=== PATIENT | female | born 1970 | race Caucasian/White ===

== ENCOUNTER 2017-05-20 09:17 | Emergency (ER) | payer BC ==
[2017-05-20] MEDS ORDERED: EPINEPHrine 0.3 MG/0.3 ML Pen Autoinjector IM ONE (09:18)
[2017-05-20] MEDS ORDERED: diphenhydrAMINE 50 MG/ML SDV IVPUSH ONE (09:26)
[2017-05-20] MEDS ORDERED: methylPREDNISolone Sodium Succinate 125 MG/2 ML SDV IVPUSH ONE (09:26)
--- NOTE | 2017-05-20 10:40 | EDM.PDOC ---
ED HPI GENERAL MEDICAL PROBLEM - General Chief Complaint: Allergic Reaction Stated Complaint: Tongue swelling allergic reaction Time Seen by Provider: 05/20/17 09:28 Source of Information: Reports: Patient History Limitations: Reports: No Limitations - History of Present Illness INITIAL COMMENTS - FREE TEXT/NARRATIVE: Patient here for allergic reaction/angioedema exacerbation. Has had intermittent problems with this for the past four years. Has Epi-Pens at home but did not use one today as she ran out. Tongue feels swollen, left eye mildly puffy. Denies shortness of breath. Pain-free. Has had numerous evaluations to try to identify triggers, including skin tests. So far no specific trigger or set of triggers have been found. She thinks she has a refill available. In past, when she received Solu-Medrol, symptoms usually urvashi for 3-4 months. Other Treatments CONSULTING SERVICES PROJECT MANAGER: none - Related Data Allergies Allergy/AdvReac Type Severity Reaction Status Date / Time ciprofloxacin Allergy Burning Verified 05/20/17 09:27 desipramine Allergy UNKNOWN Verified 05/20/17 09:27 Home Meds: Home Meds EPINEPHrine [Epipen] 0.3 mg IM ASDIRECTED PRN 02/02/14 [History] FLUoxetine HCl [Fluoxetine HCl] 80 mg PO DAILY 02/02/14 [History] Omeprazole 40 mg PO DAILY 02/02/14 [History] Cyanocobalamin (Vitamin B12) [Vitamin B12] 1,000 mg PO DAILY 11/11/14 [History] Polyethylene Glycol 3350 [MiraLAX] 17 gm PO DAILY PRN 11/11/14 [History] Cholecalciferol (Vitamin D3) [Vitamin D3] 4,000 unit PO DAILY 05/20/17 [History] EPINEPHrine [Epipen] 0.3 mg IM ONETIME PRN #1 pen 05/20/17 [Rx] busPIRone [Buspar] 15 mg PO BID 05/20/17 [History] Past Medical History HEENT History: Reports: Impaired Vision Other HEENT History: legally blind Gastrointestinal History: Reports: Cholelithiasis, GERD Genitourinary History: Reports: None Psychiatric History: Reports: Anxiety, Depression Endocrine/Metabolic History: Reports: Vitamin D Deficiency Hematologic History: Reports: Anemia, B12 Deficiency, Iron Deficiency - Past Surgical History HEENT Surgical History: Reports: Eye Surgery, Tonsillectomy Other HEENT Surgeries/Procedures: total of seven eye surgies GI Surgical History: Reports: Bariatric Procedure, Cholecystectomy Female Surgical History: Reports: Hysterectomy Social & Family History - Tobacco Use Smoking Status *Q: Current Every Day Smoker Years of Tobacco use: 20 Packs/Tins Daily: 0.5 Second Hand Smoke Exposure: Yes - Caffeine Use Caffeine Use: Reports: Soda - Alcohol Use Days Per Week of Alcohol Use: 1 Number of Drinks Per Day: 2 Total Drinks Per Week: 2 - Recreational Drug Use Recreational Drug Use: No Drug Use in Last 12 Months: No - Living Situation & Occupation Living situation: Reports: , with Family Occupation: Employed ED ROS ALLERGIC REACTION - Review of Systems Review Of Systems: See Below Constitutional: Reports: No Symptoms HEENT: Reports: Throat Pain (throat feels irritated), Other (tongue fees swollen , left eye feels puffy). Denies: Ear Discharge, Ear Pain, Eye Discharge, Eye Pain, Rhinitis, Sinus Problem, Throat Swelling, Vertigo, Vision Change Respiratory: Reports: No Symptoms. Denies: Shortness of Breath, Wheezing, Pleuritic Chest Pain, Cough, Hemoptysis Cardiovascular: Reports: No Symptoms. Denies: Chest Pain, Lightheadedness, Palpitations GI/Abdominal: Reports: No Symptoms : Reports: No Symptoms Musculoskeletal: Reports: No Symptoms Skin: Reports: No Symptoms Neurological: Reports: No Symptoms. Denies: Dizziness, Headache, Numbness, Tingling Psychiatric: Reports: No Symptoms Hematologic/Lymphatic: Reports: No Symptoms Immunologic: Reports: Other (unknown) ED EXAM GENERAL NO PERIP PULSE - Physical Exam Exam: See Below Exam Limited By: No Limitations General Appearance: Alert Eye Exam: Left Eye: Periorbital Changes (very mildly puffy upper/lower lid compared to right), Bilateral Eye: EOMI, PERRL Ears: Normal External Exam Nose: Normal Inspection. No: Nasal Swelling, Nasal Drainage Throat/Mouth: Normal Lips, Normal Teeth, Normal Gums, Normal Voice, No Airway Compromise, Other (mildly swollen tongue, equal bilaterally) Head: Atraumatic. No: Facial Tenderness, Sinus Tenderness Neck: Normal Inspection, Supple, Non-Tender, Full Range of Motion. No: Lymphadenopathy (L), Lymphadenopathy (R) Respiratory/Chest: No Respiratory Distress, Lungs Clear, Normal Breath Sounds, No Accessory Muscle Use Cardiovascular: Normal Peripheral Pulses, Regular Rate, Rhythm, No Edema, No Murmur GI/Abdominal: Normal Bowel Sounds, Soft, Non-Tender, No Distention Back Exam: Normal Inspection Extremities: Normal Inspection, Normal Range of Motion, Non-Tender, No Pedal Edema, Normal Capillary Refill Neurological: Alert, Oriented, Normal Cognition, Normal Gait, No Motor/Sensory Deficits Psychiatric: Normal Affect, Normal Mood Skin Exam: Warm, Dry, Intact, Normal Color, No Rash Course - Vital Signs Last Recorded V/S: Last Vital Signs Temp 37.1 C 05/20/17 09:33 Pulse 67 05/20/17 09:48 Resp 18 05/20/17 09:48 BP 107/52 L 05/20/17 09:48 Pulse Ox 99 05/20/17 09:48 - Orders/Labs/Meds Meds: Medications Discontinued Medications Generic Name Dose Route Start Last Admin Trade Name Freq PRN Reason Stop Dose Admin Diphenhydramine HCl 50 mg 05/20/17 09:26 05/20/17 09:30 Benadryl IVPUSH 05/20/17 09:27 50 mg ONETIME ONE Administration Epinephrine HCl 0.3 mg 05/20/17 09:18 05/20/17 09:23 Epipen IM 05/20/17 09:19 0.3 mg ONETIME ONE Administration Methylprednisolone Sodium Succinate 125 mg 05/20/17 09:26 05/20/17 09:30 Solu-Medrol IVPUSH 05/20/17 09:27 125 mg ONETIME ONE Administration - Re-Assessments/Exams Free Text/Narrative Re-Assessment/Exam: 05/20/17 11:07 Patient received IV SoluMedrol, Benadryl, as well as Epi-Pen Quick improvement. Observed for an hour. Continued to improve. Vital signs stable. Discharge planned. Continued steroids planned for 5 days as well as Benadryl. EpiPen refilled. Extensive precautions given to patient prior to discharge. Departure - Departure Time of Disposition: 10:38 Disposition: Home, Self-Care 01 Condition: Good Clinical Impression: Angioedema - Discharge Information Prescriptions: EPINEPHrine [Epipen] 0.3 mg IM ONETIME PRN #1 pen PRN Reason: anaphylaxis Instructions: Diphenhydramine injection, Methylprednisolone Solution for Injection, Epinephrine Injection, Allergies Referrals: Jessica Gentile PA-C [Primary Care Provider] - Additional Instructions: Continue daily Prednisone starting tomorrow and continue for full 5 days. Continue Benadryl 1-2 tablets every 6 hours for the next 48 hours then use as needed if symptoms continue. Follow up in ER if symptoms rebound, especially if you have any shortness of breath. Strongly suggest elimination diet and food/symptom/activity diary as discussed.
[2017-05-20 11:12] VITALS: BP 100/52
== END 2017-05-20 11:00 | disposition home or self-care (01) ==
LOC: LL.ED 09:17 → SUPCPDRO 09:17 → LL.ED 11:00
DX: T78.3XXA Angioneurotic edema, initial encounter (principal); K21.9 Gastro-esophageal reflux disease without esophagitis; F41.9 Anxiety disorder, unspecified; F17.210 Nicotine dependence, cigarettes, uncomplicated; Z90.49 Acquired absence of other specified parts of digestive tract; Z79.899 Other long term (current) drug therapy; Z88.1 Allergy status to other antibiotic agents; Z88.8 Allergy status to other drugs, medicaments and biological substances; Z90.710 Acquired absence of both cervix and uterus
CPT/HCPCS: 96372; 96374; 96375; 99284; J1200; J2930; A9270-GY

== ENCOUNTER 2017-06-22 15:19 | Emergency (ER) | payer BC ==
[~2017-06-22 15:19] MED LIST: EPINEPHrine 0.3 MG/0.3 ML Pen Autoinjector IM ONE; EPINEPHrine 1 MG/ML SDV SUBCUT ONE; diphenhydrAMINE 50 MG/ML SDV IVPUSH ONE
[2017-06-22] MEDS ORDERED: Sodium Chloride 0.9% 10 ML Syringe FLUSH PRN (15:33)
--- NOTE | 2017-06-22 15:40 | EDM.PDOC ---
ED HPI GENERAL MEDICAL PROBLEM - General Chief Complaint: General Stated Complaint: oral swelling Time Seen by Provider: 06/22/17 15:47 Source of Information: Reports: Patient, Family History Limitations: Reports: No Limitations - History of Present Illness Onset: Today, Sudden Duration: Minutes:, Improving Location: Reports: Face, Neck Severity: Moderate Improves with: Reports: Medication (EpiPen) Worsens with: Reports: Breathing Context: Reports: Other (Unknown cause of anaphylactic reaction) Associated Symptoms: Reports: Other (Swelling of face tongue wheezing) - Related Data Allergies Allergy/AdvReac Type Severity Reaction Status Date / Time ciprofloxacin Allergy Burning Verified 05/20/17 09:27 desipramine Allergy UNKNOWN Verified 05/20/17 09:27 Home Meds: Home Meds EPINEPHrine [Epipen] 0.3 mg IM ASDIRECTED PRN 02/02/14 [History] FLUoxetine HCl [Fluoxetine HCl] 80 mg PO DAILY 02/02/14 [History] Omeprazole 40 mg PO DAILY 02/02/14 [History] Cyanocobalamin (Vitamin B12) [Vitamin B12] 1,000 mg PO DAILY 11/11/14 [History] Polyethylene Glycol 3350 [MiraLAX] 17 gm PO DAILY PRN 11/11/14 [History] Cholecalciferol (Vitamin D3) [Vitamin D3] 4,000 unit PO DAILY 05/20/17 [History] EPINEPHrine [Epipen] 0.3 mg IM ONETIME PRN #1 pen 05/20/17 [Rx] busPIRone [Buspar] 15 mg PO BID 05/20/17 [History] Cetirizine [ZyrTEC] 10 mg PO DAILY 06/22/17 [History] Prednisone [IJD: Prednisone] 20 mg PO 6XDAY #6 tab 06/22/17 [Rx] diphenhydrAMINE [Benadryl] 50 mg PO Q6H PRN 06/22/17 [History] Past Medical History HEENT History: Reports: Impaired Vision Other HEENT History: legally blind Gastrointestinal History: Reports: Cholelithiasis, GERD Genitourinary History: Reports: None Psychiatric History: Reports: Anxiety, Depression Endocrine/Metabolic History: Reports: Vitamin D Deficiency Hematologic History: Reports: Anemia, B12 Deficiency, Iron Deficiency - Past Surgical History HEENT Surgical History: Reports: Eye Surgery, Tonsillectomy Other HEENT Surgeries/Procedures: total of seven eye surgies GI Surgical History: Reports: Bariatric Procedure, Cholecystectomy Female Surgical History: Reports: Hysterectomy Social & Family History - Tobacco Use Smoking Status *Q: Current Every Day Smoker Years of Tobacco use: 20 Packs/Tins Daily: 0.5 Second Hand Smoke Exposure: Yes - Caffeine Use Caffeine Use: Reports: Soda - Alcohol Use Days Per Week of Alcohol Use: 1 Number of Drinks Per Day: 2 Total Drinks Per Week: 2 - Recreational Drug Use Recreational Drug Use: No Drug Use in Last 12 Months: No - Living Situation & Occupation Living situation: Reports: , with Family Occupation: Employed ED ROS GENERAL - Review of Systems Review Of Systems: See Below Constitutional: Reports: Other (Swelling) HEENT: Reports: Other (Patient has congenital cataracts) Respiratory: Reports: Shortness of Breath, Wheezing Cardiovascular: Reports: No Symptoms Endocrine: Reports: No Symptoms GI/Abdominal: Reports: No Symptoms Musculoskeletal: Reports: No Symptoms Skin: Reports: No Symptoms Neurological: Reports: No Symptoms Psychiatric: Reports: No Symptoms Free Text/Narrative/Comment: Patient has history of allergic reactions with anaphylaxis ED EXAM, GENERAL - Physical Exam Exam: See Below Exam Limited By: No Limitations General Appearance: Alert, WD/WN, No Apparent Distress Eye Exam: Bilateral Eye: PERRL, Vision Changes (20/200 bilaterally) Ears: Normal External Exam, Normal Canal, Hearing Grossly Normal, Normal TMs Nose: Normal Inspection, Normal Mucosa, No Blood Throat/Mouth: Inflammation Neck: Supple, Tender Lateral, Other (Swelling) Cardiovascular: Normal Peripheral Pulses, Regular Rate, Rhythm, No Edema, No Gallop, No JVD, No Murmur, No Rub GI/Abdominal: Normal Bowel Sounds, Soft, Non-Tender, No Organomegaly, No Distention, No Abnormal Bruit, No Mass (Female) Exam: Normal External Exam, Normal Speculum Exam, Normal Bimanual Exam Rectal (Female) Exam: Deferred Extremities: Normal Inspection, Normal Range of Motion, Non-Tender, Normal Capillary Refill, No Pedal Edema Neurological: Alert, Oriented, CN II-XII Intact, Normal Cognition, Normal Gait, Normal Reflexes, No Motor/Sensory Deficits Psychiatric: Normal Affect, Normal Mood Skin Exam: Warm, Dry, Intact, Normal Color, No Rash Course - Orders/Labs/Meds Orders: Active Orders 24 hr Category Date Time Status Sodium Chloride 0.9% [Saline Flush] Med 06/22/17 15:33 Active 10 ml FLUSH ASDIRECTED PRN Saline Lock Insert [OM.PC] Routine Oth 06/22/17 15:33 Ordered Medication Orders Sodium Chloride (Saline Flush) 10 ml FLUSH ASDIRECTED PRN PRN Reason: Keep Vein Open Meds: Medications Generic Name Dose Route Start Last Admin Trade Name Freq PRN Reason Stop Dose Admin Sodium Chloride 10 ml 06/22/17 15:33 Saline Flush FLUSH ASDIRECTED PRN Keep Vein Open Discontinued Medications Generic Name Dose Route Start Last Admin Trade Name Freq PRN Reason Stop Dose Admin Diphenhydramine HCl 50 mg 06/22/17 14:22 Benadryl IVPUSH 06/22/17 14:23 ONETIME ONE Epinephrine HCl 0.3 mg 06/22/17 15:19 Adrenalin 1:1000 SUBCUT 06/22/17 15:20 ONETIME ONE Epinephrine HCl 0.3 mg 06/22/17 15:19 06/22/17 15:34 Epipen IM 06/22/17 15:20 1 applic ONETIME ONE Administration Departure - Departure Time of Disposition: 15:47 Disposition: Home, Self-Care 01 Clinical Impression: Allergic reaction Qualifiers: Encounter type: initial encounter Qualified Code(s): T78.40XA - Allergy, unspecified, initial encounter - Discharge Information Referrals: Jessica Gentile PA-C [Primary Care Provider] - Care Plan Goals: Patient treated with EpiPen given 50 of Benadryl by mouth we'll start prednisone 20 mg daily for 5 day for 6 days - My Orders Last 24 Hours: My Active Orders 06/22/17 15:33 Sodium Chloride 0.9% [Saline Flush] 10 ml FLUSH ASDIRECTED PRN Saline Lock Insert [OM.PC] Routine - Assessment/Plan Last 24 Hours: My Active Orders 06/22/17 15:33 Sodium Chloride 0.9% [Saline Flush] 10 ml FLUSH ASDIRECTED PRN Saline Lock Insert [OM.PC] Routine
[2017-06-22 17:24] VITALS: BP 104/56
== END 2017-06-22 16:45 | disposition home or self-care (01) ==
LOC: LL.ED 15:19
DX: T78.40XA Allergy, unspecified, initial encounter (principal); F17.210 Nicotine dependence, cigarettes, uncomplicated; K21.9 Gastro-esophageal reflux disease without esophagitis; F41.9 Anxiety disorder, unspecified; F32.9 Major depressive disorder, single episode, unspecified; Z86.79 Personal history of other diseases of the circulatory system; Z90.49 Acquired absence of other specified parts of digestive tract; Z90.89 Acquired absence of other organs; Z88.1 Allergy status to other antibiotic agents; Z88.5 Allergy status to narcotic agent; Z79.899 Other long term (current) drug therapy; Z90.710 Acquired absence of both cervix and uterus
CPT/HCPCS: 96372; 96374; 99285; A9270; J1200

== ENCOUNTER 2017-08-26 19:40 | Emergency (ER) | payer BC ==
[2017-08-26] MEDS ORDERED: methylPREDNISolone Sod Succ 125 MG in Sodium Chloride 0.9% 100 ML IV ONE (19:55)
[2017-08-26] MEDS ORDERED: Sodium Chloride 0.9% 10 ML Syringe FLUSH PRN (19:55)
--- NOTE | 2017-08-26 19:57 | EDM.PDOC ---
ED HPI GENERAL MEDICAL PROBLEM - General Chief Complaint: General Stated Complaint: allergic reaction Time Seen by Provider: 08/26/17 19:50 Source of Information: Reports: Patient History Limitations: Reports: No Limitations - History of Present Illness INITIAL COMMENTS - FREE TEXT/NARRATIVE: Patient is a 47-year-old who states that about 20 minutes ago she noticed her lips swelling and felt she was having an allergic reaction she has had multiple allergic reactions recently at this time this looks more like angioedema so I will have pharmacy go through her medications to see if any of her medications produce angioedema patient denies shortness of breath Onset: Sudden Duration: Minutes: Location: Reports: Face (Swelling of lips) Severity: Moderate Improves with: Reports: Medication, Other (Medication) Associated Symptoms: Reports: No Other Symptoms - Related Data Allergies Allergy/AdvReac Type Severity Reaction Status Date / Time ciprofloxacin Allergy Burning Verified 05/20/17 09:27 desipramine Allergy UNKNOWN Verified 05/20/17 09:27 Home Meds: Home Meds EPINEPHrine [Epipen] 0.3 mg IM ASDIRECTED PRN 02/02/14 [History] FLUoxetine HCl [Fluoxetine HCl] 80 mg PO DAILY 02/02/14 [History] Omeprazole 40 mg PO DAILY 02/02/14 [History] Cyanocobalamin (Vitamin B12) [Vitamin B12] 1,000 mg PO DAILY 11/11/14 [History] Polyethylene Glycol 3350 [MiraLAX] 17 gm PO DAILY PRN 11/11/14 [History] Cholecalciferol (Vitamin D3) [Vitamin D3] 4,000 unit PO DAILY 05/20/17 [History] busPIRone [Buspar] 15 mg PO BID 05/20/17 [History] diphenhydrAMINE [Benadryl] 50 mg PO Q6H PRN 06/22/17 [History] Loratadine 10 mg PO DAILY PRN 08/26/17 [History] Ranitidine HCl [Zantac] 150 mg PO BID PRN 08/26/17 [History] Past Medical History HEENT History: Reports: Impaired Vision Other HEENT History: legally blind Gastrointestinal History: Reports: Cholelithiasis, GERD Genitourinary History: Reports: None Psychiatric History: Reports: Anxiety, Depression Endocrine/Metabolic History: Reports: Vitamin D Deficiency Hematologic History: Reports: Anemia, B12 Deficiency, Iron Deficiency - Past Surgical History HEENT Surgical History: Reports: Eye Surgery, Tonsillectomy Other HEENT Surgeries/Procedures: total of seven eye surgies GI Surgical History: Reports: Bariatric Procedure, Cholecystectomy Female Surgical History: Reports: Hysterectomy Social & Family History - Tobacco Use Smoking Status *Q: Current Every Day Smoker Years of Tobacco use: 20 Packs/Tins Daily: 0.5 Second Hand Smoke Exposure: Yes - Caffeine Use Caffeine Use: Reports: Soda - Alcohol Use Days Per Week of Alcohol Use: 1 Number of Drinks Per Day: 2 Total Drinks Per Week: 2 - Recreational Drug Use Recreational Drug Use: No Drug Use in Last 12 Months: No - Living Situation & Occupation Living situation: Reports: , with Family Occupation: Employed ED ROS GENERAL - Review of Systems Review Of Systems: See Below Constitutional: Reports: No Symptoms HEENT: Reports: Contact Lenses, Rhinitis Respiratory: Reports: No Symptoms Cardiovascular: Reports: No Symptoms Endocrine: Reports: No Symptoms GI/Abdominal: Reports: Diarrhea (Patient has diarrhea prior to an outbreak as a general comment) : Reports: No Symptoms Musculoskeletal: Reports: No Symptoms Skin: Reports: No Symptoms Neurological: Reports: No Symptoms Psychiatric: Reports: No Symptoms Hematologic/Lymphatic: Reports: No Symptoms Immunologic: Reports: Anaphylaxis ED EXAM, GENERAL - Physical Exam Exam: See Below Exam Limited By: No Limitations General Appearance: Alert, WD/WN, No Apparent Distress Ears: Normal External Exam, Normal Canal, Hearing Grossly Normal, Normal TMs Nose: Clear Rhinorrhea Throat/Mouth: Other (Swelling of lips) Head: Atraumatic, Normocephalic Neck: Normal Inspection, Supple, Non-Tender, Full Range of Motion Respiratory/Chest: No Respiratory Distress, Lungs Clear, Normal Breath Sounds, No Accessory Muscle Use, Chest Non-Tender Cardiovascular: Normal Peripheral Pulses, Regular Rate, Rhythm, No Edema, No Gallop, No JVD, No Murmur, No Rub GI/Abdominal: Normal Bowel Sounds, Soft, Non-Tender, No Organomegaly, No Distention, No Abnormal Bruit, No Mass (Female) Exam: Deferred Rectal (Female) Exam: Deferred Back Exam: Normal Inspection, Full Range of Motion, NT Extremities: Normal Inspection, Normal Range of Motion, Non-Tender, Normal Capillary Refill, No Pedal Edema Neurological: Alert, Oriented, CN II-XII Intact, Normal Cognition, Normal Gait, Normal Reflexes, No Motor/Sensory Deficits Psychiatric: Normal Affect, Normal Mood Skin Exam: Warm, Dry, Intact, Normal Color, No Rash Lymphatic: No Adenopathy Departure - Departure Time of Disposition: 20:37 Disposition: Home, Self-Care 01 Condition: Fair Clinical Impression: Allergic reaction Qualifiers: Encounter type: subsequent encounter Qualified Code(s): T78.40XD - Allergy, unspecified, subsequent encounter - Discharge Information Referrals: Jessica Gentile PA-C [Primary Care Provider] - Care Plan Goals: She will be given Solu-Medrol 150 IV and placed on prednisone 20 twice a day for 5 days Prolonged medications revealed that all her medications can produce angioedema spoke with the pharmacist and state that we should consider stopping one at a time to see if this resolves and of course we have to taper her Prozac and BuSpar
[2017-08-26] MEDS ORDERED: methylPREDNISolone Sodium Succinate 125 MG/2 ML SDV IVPUSH ONE (20:00)
[2017-08-26 20:40] VITALS: BP 112/61
== END 2017-08-26 20:55 | disposition home or self-care (01) ==
LOC: LL.ED 19:40
DX: T78.40XD Allergy, unspecified, subsequent encounter (principal); K21.9 Gastro-esophageal reflux disease without esophagitis; F17.210 Nicotine dependence, cigarettes, uncomplicated; Z88.1 Allergy status to other antibiotic agents; Z88.8 Allergy status to other drugs, medicaments and biological substances; Z79.899 Other long term (current) drug therapy
CPT/HCPCS: 96374; 99283; J2930; J7050

== ENCOUNTER 2018-02-16 09:32 | Emergency (ER) | payer BC ==
[2018-02-16] MEDS ORDERED: diphenhydrAMINE 50 MG/ML SDV IVPUSH ONE (09:43)
[2018-02-16] MEDS ORDERED: Sodium Chloride 0.9% 10 ML Syringe FLUSH PRN (09:43)
[2018-02-16] MEDS ORDERED: methylPREDNISolone Sodium Succinate 125 MG/2 ML SDV IM ONE (09:43)
[2018-02-16] MEDS ORDERED: methylPREDNISolone Sodium Succinate 125 MG/2 ML SDV IVPUSH ONE (09:47)
[2018-02-16 10:03] VITALS: BP 120/54
[2018-02-16] MEDS ORDERED: EPINEPHrine 0.3 MG/0.3 ML Pen Autoinjector IM ONE (10:28)
[2018-02-16] MEDS ORDERED: Famotidine 20 MG/2 ML SDV IVPUSH ONE (10:28)
[2018-02-16] MEDS ORDERED: Sodium Chloride 0.9% 500 ML IV ONE (10:29)
[2018-02-16] MEDS ORDERED: Loratadine 10 MG Tab PO ONE (10:29)
[2018-02-16] MEDS ORDERED: Sodium Chloride 0.9% 500 ML IV SCH (10:45)
--- NOTE | 2018-02-16 11:44 | EDM.PDOC ---
ED HPI GENERAL MEDICAL PROBLEM - General Chief Complaint: Allergic Reaction Stated Complaint: Swelling of tongue Time Seen by Provider: 02/16/18 10:05 Source of Information: Reports: Patient History Limitations: Reports: No Limitations - History of Present Illness INITIAL COMMENTS - FREE TEXT/NARRATIVE: Patient comes to ER with episode of angioedema of tongue. She is well known to us and has had to be treated in ER for similar episodes in past. Has had intermittent episodes over the last 5 years. No specific trigger has ever been identified. Is now seeing an hydraulic boom operator. No SOB. Has swelling of tongue. No other acute changes. No changes in symptoms when compared to episodes experienced in past. Has always required steroids/solu -medrol for successful treatment. Had Epi-pen at home but could not locate it this morning when symptoms developed. Oral/Mouth Pain Score (Numeric/FACES): 2 - Related Data Allergies Allergy/AdvReac Type Severity Reaction Status Date / Time ciprofloxacin Allergy Burning Verified 02/16/18 10:16 desipramine Allergy UNKNOWN Verified 02/16/18 10:16 Home Meds: Home Meds EPINEPHrine [Epipen] 0.3 mg IM ASDIRECTED PRN 02/02/14 [History] FLUoxetine HCl [Fluoxetine HCl] 80 mg PO DAILY 02/02/14 [History] Omeprazole 40 mg PO DAILY 02/02/14 [History] Cyanocobalamin (Vitamin B12) [Vitamin B12] 1,000 mg PO DAILY 11/11/14 [History] Polyethylene Glycol 3350 [MiraLAX] 17 gm PO DAILY PRN 11/11/14 [History] Cholecalciferol (Vitamin D3) [Vitamin D3] 4,000 unit PO DAILY 05/20/17 [History] busPIRone [Buspar] 15 mg PO BID 05/20/17 [History] diphenhydrAMINE [Benadryl] 50 mg PO Q6H PRN 06/22/17 [History] Loratadine 10 mg PO DAILY PRN 08/26/17 [History] Doxepin [SINEquan] 10 mg PO BEDTIME 02/16/18 [History] predniSONE 40 mg PO WITHBREAKFAST 4 Days tab 02/16/18 [Rx] Past Medical History HEENT History: Reports: Impaired Vision Other HEENT History: legally blind Gastrointestinal History: Reports: Cholelithiasis, GERD Genitourinary History: Reports: None Psychiatric History: Reports: Anxiety, Depression Endocrine/Metabolic History: Reports: Vitamin D Deficiency Hematologic History: Reports: Anemia, B12 Deficiency, Iron Deficiency - Past Surgical History HEENT Surgical History: Reports: Eye Surgery, Tonsillectomy Other HEENT Surgeries/Procedures: total of seven eye surgies GI Surgical History: Reports: Bariatric Procedure, Cholecystectomy Female Surgical History: Reports: Hysterectomy Social & Family History - Tobacco Use Smoking Status *Q: Current Every Day Smoker Years of Tobacco use: 20 Packs/Tins Daily: 0.5 - Caffeine Use Caffeine Use: Reports: Soda - Recreational Drug Use Recreational Drug Use: No - Living Situation & Occupation Living situation: Reports: , with Family Occupation: Employed ED ROS ALLERGIC REACTION - Review of Systems Review Of Systems: See Below Constitutional: Reports: No Symptoms HEENT: Reports: Other (swelling of tongue). Denies: Ear Pain, Eye Discharge, Nose Pain, Rhinitis, Sinus Problem, Throat Pain, Vertigo, Vision Change Respiratory: Reports: No Symptoms. Denies: Shortness of Breath Cardiovascular: Reports: No Symptoms. Denies: Chest Pain, Lightheadedness GI/Abdominal: Reports: No Symptoms : Reports: No Symptoms Musculoskeletal: Reports: No Symptoms Skin: Reports: No Symptoms. Denies: Erythema, Change in Color, Urticaria Neurological: Reports: No Symptoms Psychiatric: Reports: No Symptoms ED EXAM GENERAL NO PERIP PULSE - Physical Exam Exam: See Below Exam Limited By: No Limitations General Appearance: Alert, WD/WN, No Apparent Distress, Other (muffled speech due to tongue swelling) Eye Exam: Bilateral Eye: EOMI, Other (legally blind.) Ears: Normal External Exam, Normal Canal Nose: Normal Inspection Throat/Mouth: Normal Lips, No Airway Compromise, Other (symmetric swelling of tongue) Head: Atraumatic, Normocephalic Neck: Supple, Non-Tender, Full Range of Motion. No: Lymphadenopathy (L), Lymphadenopathy (R) Respiratory/Chest: No Respiratory Distress, Lungs Clear, Normal Breath Sounds, No Accessory Muscle Use Cardiovascular: Normal Peripheral Pulses, Regular Rate, Rhythm GI/Abdominal: Normal Bowel Sounds, Soft, Non-Tender, No Distention (Female) Exam: Deferred Rectal (Female) Exam: Deferred Back Exam: No: CVA Tenderness (L), CVA Tenderness (R), Muscle Spasm, Paraspinal Tenderness, Vertebral Tenderness Extremities: Normal Inspection, Normal Capillary Refill Neurological: Alert, Oriented, Normal Cognition, No Motor/Sensory Deficits Psychiatric: Normal Affect, Normal Mood Skin Exam: Warm, Dry, Intact, Normal Color. No: Erythema, Increased Warmth Course - Vital Signs Last Recorded V/S: Last Vital Signs Temp 36.5 C 02/16/18 10:00 Pulse 77 02/16/18 10:00 Resp 18 02/16/18 10:00 BP 120/54 L 02/16/18 10:00 Pulse Ox 97 02/16/18 10:00 - Orders/Labs/Meds Orders: Active Orders 24 hr Category Date Time Status Sodium Chloride 0.9% [Normal Saline] 500 ml Med 02/16/18 10:45 Active IV .BOLUS Sodium Chloride 0.9% [Saline Flush] Med 02/16/18 09:43 Active 10 ml FLUSH ASDIRECTED PRN Saline Lock Insert [OM.PC] Routine Oth 02/16/18 09:43 Ordered Medication Orders Sodium Chloride (Normal Saline) 500 mls @ 999 mls/hr IV .BOLUS GODWIN Last Admin: 02/16/18 10:44 Dose: 999 mls/hr Sodium Chloride (Saline Flush) 10 ml FLUSH ASDIRECTED PRN PRN Reason: Keep Vein Open Last Admin: 02/16/18 09:56 Dose: 10 ml Meds: Medications Generic Name Dose Route Start Last Admin Trade Name Freq PRN Reason Stop Dose Admin Sodium Chloride 500 mls @ 999 mls/hr 02/16/18 10:45 02/16/18 10:44 Normal Saline IV 999 mls/hr .BOLUS GODWIN Administration Sodium Chloride 10 ml 02/16/18 09:43 02/16/18 09:56 Saline Flush FLUSH 10 ml ASDIRECTED PRN Administration Keep Vein Open Discontinued Medications Generic Name Dose Route Start Last Admin Trade Name Freq PRN Reason Stop Dose Admin Diphenhydramine HCl 50 mg 02/16/18 09:43 02/16/18 09:55 Benadryl IVPUSH 02/16/18 09:44 50 mg ONETIME ONE Administration Epinephrine HCl 0.3 mg 02/16/18 10:28 02/16/18 10:34 Epipen IM 02/16/18 10:29 0.3 mg ONETIME ONE Administration Famotidine 20 mg 02/16/18 10:28 02/16/18 10:34 Pepcid IVPUSH 02/16/18 10:29 20 mg ONETIME ONE Administration Loratadine 10 mg 02/16/18 10:29 02/16/18 10:39 Claritin PO 02/16/18 10:30 10 mg ONETIME ONE Administration Methylprednisolone Sodium Succinate 125 mg 02/16/18 09:47 02/16/18 09:55 Solu-Medrol IVPUSH 02/16/18 09:48 125 mg ONETIME ONE Administration - Re-Assessments/Exams Free Text/Narrative Re-Assessment/Exam: 02/16/18 11:45 Patient initially received Solu-Medrol and Benadryl IV. Observed. Vital signs remained stable/airway clear. Epi-pen as well as IV Pepcid, PO Claritin ordered. Improvement noted. Continued to observe for additional hour. Discharged home. Precautions reviewed prior to discharge. To return to ER if symptoms flare again. Will be placed on Prednisone PO for the next 4 days. To follow up with primary provider/ hydraulic boom operator. Departure - Departure Time of Disposition: 12:00 Disposition: Home, Self-Care 01 Condition: Good Clinical Impression: Angioedema - Discharge Information Prescriptions: predniSONE 40 mg PO WITHBREAKFAST 4 Days tab Referrals: Jessica Gentile PA-C [Primary Care Provider] - Additional Instructions: Follow up in ER if symptoms of swelling return. Take Prednisone daily for four days starting tomorrow. Take Benadryl 50mg every 6 hours for the next two days. Follow up with primary provider and hydraulic boom operator for continued workup of intermittent angioedema symptoms. - My Orders Last 24 Hours: My Active Orders 02/16/18 09:43 Sodium Chloride 0.9% [Saline Flush] 10 ml FLUSH ASDIRECTED PRN Saline Lock Insert [OM.PC] Routine 02/16/18 10:45 Sodium Chloride 0.9% [Normal Saline] 500 ml IV .BOLUS - Assessment/Plan Last 24 Hours: My Active Orders 02/16/18 09:43 Sodium Chloride 0.9% [Saline Flush] 10 ml FLUSH ASDIRECTED PRN Saline Lock Insert [OM.PC] Routine 02/16/18 10:45 Sodium Chloride 0.9% [Normal Saline] 500 ml IV .BOLUS
== END 2018-02-16 12:10 | disposition home or self-care (01) ==
LOC: LL.ED 09:32
DX: T78.3XXA Angioneurotic edema, initial encounter (principal); F17.210 Nicotine dependence, cigarettes, uncomplicated; Z88.1 Allergy status to other antibiotic agents; Z79.899 Other long term (current) drug therapy
CPT/HCPCS: 96372; 96374; 96375; 99285; A9270-GY; J1200; J2930; J7040; J7050; S0028

== ENCOUNTER 2018-09-28 04:43 | Emergency (ER) | payer BC ==
[2018-09-28] MEDS ORDERED: Famotidine 20 MG/2 ML SDV IVPUSH ONE (04:44)
--- NOTE | 2018-09-28 04:44 | EDM.PDOC ---
ED HPI GENERAL MEDICAL PROBLEM - General Chief Complaint: General Stated Complaint: unresponsive Time Seen by Provider: 09/28/18 04:44 Source of Information: Reports: Patient, EMS, Family (), Old Records. Denies: EMS Notes Reviewed (Records not available at time of dictation) History Limitations: Reports: Altered Mental Status - History of Present Illness INITIAL COMMENTS - FREE TEXT/NARRATIVE: The patient was brought to the emergency room via ambulance with front end developer accompaniment secondary to apparent overdose attempt with patient found out in the cold outside of her house in her pajamas and coat. Paramedics did place a nasal cannula to improve respirations and also gave 0.4 mg of Narcan prior to arrival with no improvement. Normal saline IV fluids were also started. Per history from the patient's they have been having frequent fights recently with patient apparently taking more than 20 of his 0.25 mg Xanax tablets this evening. She also apparently drank at least 8 beers with no other known pills for overdose. She is unable to give a proper history secondary to her unresponsiveness with majority of history taken from her . No apparent chest pain/pressure, heart flutter, dizziness, orthostasis, orthopnea, diaphoresis, paresthesias, recent decreased exercise tolerance, or any other anginal-type symptoms. No recent history of abdominal pain, heartburn, nausea, diarrhea, melena, gross hematochezia, or any food intolerance, including fatty foods, etc.. Also, no apparent history of any recent fever, cough, wheezing, dyspnea, etc.. No history of recent headaches, visual changes, diplopia, change in mental status, or other change in neurological status. No apparent pain or discomfort. Accu-Chek taken by front end developer prior to transfer was 78 mg percent. Onset: Today, Unknown/Unsure Duration: Constant Location: Reports: Other (No pain) Improves with: Reports: None Worsens with: Reports: None Context: Reports: Other (As above). Denies: Sick Contact, Trauma Associated Symptoms: Reports: No Other Symptoms Treatments SHOE IRONER: Reports: IV/IO, Other Medication(s) (As above), Oxygen - Related Data Allergies Allergy/AdvReac Type Severity Reaction Status Date / Time ciprofloxacin Allergy Burning Verified 02/16/18 10:16 desipramine Allergy UNKNOWN Verified 02/16/18 10:16 Home Meds: Home Meds EPINEPHrine [Epipen] 0.3 mg IM ASDIRECTED PRN 02/02/14 [History] FLUoxetine HCl [Fluoxetine HCl] 80 mg PO DAILY 02/02/14 [History] Omeprazole 40 mg PO DAILY 02/02/14 [History] Cyanocobalamin (Vitamin B12) [Vitamin B12] 1,000 mg PO DAILY 11/11/14 [History] Polyethylene Glycol 3350 [MiraLAX] 17 gm PO DAILY PRN 11/11/14 [History] Cholecalciferol (Vitamin D3) [Vitamin D3] 4,000 unit PO DAILY 05/20/17 [History] busPIRone [Buspar] 15 mg PO BID 05/20/17 [History] diphenhydrAMINE [Benadryl] 50 mg PO Q6H PRN 06/22/17 [History] Loratadine 10 mg PO DAILY PRN 08/26/17 [History] Doxepin [SINEquan] 10 mg PO BEDTIME 02/16/18 [History] predniSONE 40 mg PO WITHBREAKFAST 4 Days tab 02/16/18 [Rx] Past Medical History HEENT History: Reports: Cataract, Glaucoma, Impaired Vision. Denies: Allergic Rhinitis, Hard of Hearing, Macular Degeneration, Retinal Detachment Other HEENT History: Patient is legally blind with history of bilateral congenital cataracts with previous surgery as below. Cardiovascular History: Reports: None. Denies: Afib, Aneurysm, Arrhythmia, Blood Clots/VTE/DVT, CAD, Heart Failure, Heart Murmur, High Cholesterol, Hypertension, UT, Syncope Respiratory History: Reports: Intubation, Previous. Denies: Asthma, Bronchitis , Recurrent, COPD, Intubation, Difficult, PE, Pneumothorax, Sleep Apnea Gastrointestinal History: Reports: Cholelithiasis, Chronic Constipation, Chronic Diarrhea, GERD, Other (See Below). Denies: Celiac Disease, Gastritis, GI Bleed, Hepatitis, Inflammatory Bowel Disease, Irritable Bowel Syndrome, Jaundice, Pancreatitis, PUD Other Gastrointestinal History: Alternating diarrhea and constipation secondary to gastric bypass. Genitourinary History: Reports: UTI, Recurrent, Other (See Below). Denies: Acute Renal Failure, Chronic Renal Insuffiency, Renal Calculus, STD, Urinary Incontinence Other Genitourinary History: Recurrent UTIs in childhood but not currently SWITCHBOARD MANAGER History: Reports: Dysfunctional Uterine Bleeding, Endometriosis, Fibroids , . Denies: Spontaneous : 3 Para: 3 LMP (Approximate): Other (See Below) Other SWITCHBOARD MANAGER History: Menopause secondary to endometriosis and dysfunctional uterine bleeding with previous history of irregular menses. One delivery by with 2 C-sections all full-term deliveries and secondary to breech position the other secondary to failure to progress. Otherwise, Full term without complications during pregnancies or deliveries. Musculoskeletal History: Reports: Fracture, Other (See Below). Denies: Arthritis, Gout, Neck Pain, Chronic, Osteoarthritis, RA, SLE Other Musculoskeletal History: Right fifth metacarpal fracture in the Neurological History: Denies: Cerebral Aneurysms, Concussion, CVA, Headaches, Chronic, Head Trauma, Migraines, MS, Parkinson's, Seizure, TIA, Vertigo Psychiatric History: Reports: Anxiety, Depression, Suicidal Ideation. Denies: Abuse, Victim of, ADD, ADHD, Addiction, Psych Hospitalization(s), PTSD, Suicide Attempt Endocrine/Metabolic History: Reports: Vitamin D Deficiency. Denies: Diabetes, Gestational, Diabetes, Type I, Diabetes, Type II, Diabetes Mellitus, Type 3c, Hypothyroidism, IDDM Hematologic History: Reports: Anemia, B12 Deficiency, Iron Deficiency, Other ( See Below). Denies: Blood Transfusion(s) Other Hematologic History: History of chronic anemia secondary to her dysmenorrhea/hypermenorrhea. Immunologic History: Reports: None. Denies: AIDS, HIV, SLE Oncologic (Cancer) History: Denies: Basal Cell Carcinoma, Breast, Cervix, Hodgkin's Lymphoma, Leukemia, Lymphoma, Malignant Melanoma, Non-Hodgkin's Lymphoma, Squamous Cell Carcinoma, Uterine Dermatologic History: Reports: Angiodema, Other (See Below). 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 - Infectious Disease History Infectious Disease History: Reports: Other (See Below). Denies: C-Difficile, Meningitis, Mononucleosis, MRSA, VRE Other Infectious Disease History: Childhood illnesses unknown - Past Surgical History Head Surgeries/Procedures: Reports: None HEENT Surgical History: Reports: Adenoidectomy, Cataract Surgery, Eye Surgery, Oral Surgery, Tonsillectomy. Denies: Myringotomy w Tube(s), Naso-Sinus Surgery , Radiocarotid Ectomy Other HEENT Surgeries/Procedures: Total of seven eye surgies in childhood secondary to congenital cataracts, etc.. Tonsillectomy and adenoidectomy as a child. [place] teeth extraction. Cardiovascular Surgical History: Reports: None. Denies: Varicose Respiratory Surgical History: Reports: None. Denies: Thoracentesis GI Surgical History: Reports: Bariatric Procedure, Cholecystectomy, Colonoscopy , EGD, Other (See Below). Denies: Appendectomy, Hernia, Abdominal, Hernia, Inguinal, Hernia Repair/Other, Polypectomy Other GI Surgeries/Procedures: EGD and colonoscopy on 11/12/14. Gastric bypass surgery in 1997. Subsequent laparoscopic cholecystectomy in about 1999. Female Surgical History: Reports: Section, Hysterectomy, Other (See Below). Denies: D&C, Salpingo-Oophorectomy, Tubal Ligation Other Female Surgeries/Procedures: Complete hysterectomy secondary to endometriosis at about age 39 Endocrine Surgical History: Reports: None. Denies: Thyroid Biopsy Neurological Surgical History: Reports: None. Denies: C-Spine, Discectomy, Laminectomy, Lumbar Spine, Sacral Spine, Thoracic Spine, Vertebroplasty Musculoskeletal Surgical History: Reports: Carpal Tunnel, ORIF, Other (See Below ). Denies: Arthroscopic Procedure, Ganglion Cyst, Joint Replacement, Shoulder Surgery Other Musculoskeletal Surgeries/Procedures:: ORIF of previous metacarpal fracture as above with subsequent hardware removal. Bilateral carpal tunnel release at about age 34. Oncologic Surgical History: Reports: None. Denies: Biopsy of Breast Dermatological Surgical History: Reports: None - Past Imaging History Past Imaging History: Reports: None Social & Family History - Family History Oncologic: Reports: Lung, Other (See Below) Other Oncologic Family History: Sister with fatal lung cancer at age 65 with history of tobacco use. Mother with primary hepatic cancer at age 86. - Tobacco Use Smoking Status *Q: Current Every Day Smoker Tobacco Use Within Last Twelve Months: Cigarettes Years of Tobacco use: 19 Packs/Tins Daily: 0.5 Used Tobacco, but Quit: No Smoking Cessation Information Provided To Patient: No (Patient transferred) Second Hand Smoke Exposure: Yes Source of Second Hand Smoke Exposure: smokes Second Hand Smoke Education Provided: Patient Refused - Caffeine Use Caffeine Use: Reports: Soda - Alcohol Use Alcohol Use History: Yes Days Per Week of Alcohol Use: 1 Number of Drinks Per Day: 7 Number of Drinks Per Day Comment: Usually beer. No previous DWIs, problems with alcohol abuse, etc. Total Drinks Per Week: 7 Alcohol Use in Last Twelve Months: Yes Alcohol Use Frequency: Binges - Recreational Drug Use Recreational Drug Use: Yes Recreational Drug Type: Reports: Marijuana/Hashish (Monthly marijuana use since age 39). 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 No: Dysphagia, Perioral Cyanosis Head: Atraumatic, Normocephalic. No: Facial Swelling, Facial Tenderness Neck: Normal Inspection, Supple, Non-Tender, Full Range of Motion. No: Carotid Bruit, Lymphadenopathy (L), Lymphadenopathy (R), Thyromegaly Respiratory/Chest: No Respiratory Distress, Lungs Clear, Normal Breath Sounds, No Accessory Muscle Use, Chest Non-Tender. No: Pleural Rub, Retractions Cardiovascular: Normal Peripheral Pulses, Regular Rate, Rhythm, No Edema, No Gallop, No JVD, No Murmur, No Rub. No: Gallop/S3, Gallop/S4, Friction Rub Peripheral Pulses: 2+: Radial (L), Radial (R), Dorsalis Pedis (L), Dorsalis Pedis (R) GI/Abdominal: Normal Bowel Sounds, Soft, Non-Tender, No Organomegaly, No Distention, No Abnormal Bruit, No Mass, Pelvis Stable. No: Guarding (Female) Exam: Deferred Rectal (Female) Exam: Deferred Back Exam: Normal Inspection, Full Range of Motion. No: CVA Tenderness (L), CVA Tenderness (R), Muscle Spasm Extremities: Normal Inspection, Normal Range of Motion, Non-Tender, No Pedal Edema, Normal Capillary Refill. No: Barry's Sign Neurological: Normal Reflexes (Negative Babinski's), Unresponsive (Lethargic), Other (Moderate to severe intoxication and alcohol odor) Psychiatric: Other (Unable to assesslethargic) Skin Exam: Warm, Dry, Intact, Cool, Tattoo(s). No: Diaphoretic, Wound/Incision Lymphatic: No Adenopathy EKG INTERPRETATION EKG Date: 09/28/18 Time: 05:44 Rhythm: NSR Rate (Beats/Min): 79 [place]: Normal (Neutral cardiac axis) P-Wave: Present QRS: Normal (0.08 seconds) ST-T: Normal QT: Prolonged (Mild at 434/497 ms) WY/PQ Interval: 0.12 seconds representing a short [place] interval with no delta waves noted Comparison: NA - No Prior EKG EKG Interpretation Comments: 1. No acute ischemic changes 2. Short [place] interval 3. Prolonged QT Course - Vital Signs Last Recorded V/S: Last Vital Signs Temp 36.4 C 09/28/18 06:00 Pulse 67 09/28/18 06:00 Resp 16 09/28/18 06:00 BP 108/77 09/28/18 06:00 Pulse Ox 99 09/28/18 06:00 Vital Signs - 24 hr 09/28/18 09/28/18 04:45 05:15 Temperature [ 35.9 C Temporal] Pulse, 64 96 Peripheral [ Pulse Oximetry] Respiratory 16 18 Rate Blood Pressure 107/78 157/83 H [Left Upper Arm ] O2 Sat by Pulse 99 99 Oximetry - Orders/Labs/Meds Orders: Active Orders 24 hr Category Date Time Status Cardiac Monitoring [RC] STAT Care 09/28/18 04:45 Active EKG Documentation Completion [RC] ASDIRECTED Care 09/28/18 04:45 Active Oxygen Therapy, ED [RC] PRN Care 09/28/18 04:45 Active Peripheral IV Care [RC] . DIRECTED Care 09/28/18 04:45 Active Pulse Oximetry [RC] CONTINUOUS Care 09/28/18 04:45 Active Up With Assistance [RC] ASDIRECTED Care 09/28/18 04:45 Active Vital Signs [RC] PFP Care 09/28/18 04:45 Active Nothing per Oral Now Diet [DIET] Diet 09/28/18 Breakfast Active Chest 1V Frontal [CR] Stat Exams 09/28/18 04:45 Taken CULTURE URINE [RM] Routine Lab 09/28/18 05:11 Ordered URINALYSIS W/MICROSCOPIC [UA W/MICROSCOPIC] [URIN] Lab 09/28/18 05:10 Ordered Routine Dextrose 5%-0.9% NaCl with KCl [D5 NS with 20 mEq KCl] Med 09/28/18 06:00 Active 1,000 ml IV ASDIRECTED Sodium Chloride 0.9% [Saline Flush] Med 09/28/18 04:44 Active 10 ml FLUSH ASDIRECTED PRN Obtain Past Medical Record [OM.PC] Stat Oth 09/28/18 04:45 Active Peripheral IV Insertion Adult [OM.PC] Stat Oth 09/28/18 04:45 Ordered Resuscitation Status Stat Resus Stat 09/28/18 04:44 Ordered Medication Orders Potassium Chloride/Dextrose/Sod Cl (D5 Ns With 20 Meq Kcl) 1,000 mls @ 100 mls/ hr IV ASDIRECTED GODWIN Last Admin: 09/28/18 06:02 Dose: 100 mls/hr Sodium Chloride (Saline Flush) 10 ml FLUSH ASDIRECTED PRN PRN Reason: Keep Vein Open Last Admin: 09/28/18 05:43 Dose: 10 ml Admin: 09/28/18 05:07 Dose: 10 ml Labs: Laboratory Tests 09/28/18 09/28/18 09/28/18 Range/Units 04:49 04:56 04:56 WBC 9.6 (4.0-10.2) K/uL RBC 4.18 (3.77-5.09) M/uL Hgb 12.8 (11.7-15.5) g/dL Hct 37.6 (34.0-46.0) % MCV 90.0 (84.0-98.0) fL MCH 30.6 (28.2-33.3) pg MCHC 34.0 (31.7-36.0) g/dL RDW 13.9 (11.2-14.1) % Plt Count 177 (150-350) K/uL Neut % (Auto) 58.9 (45.0-80.0) % Lymph % (Auto) 26.6 (10.0-50.0) % [place] % (Auto) 10.7 (2.0-14.0) % Eos % (Auto) 3.5 (0.0-5.0) % Baso % (Auto) 0.3 (0.0-2.0) % Neut # (Auto) 5.63 (1.40-7.00) K/uL Lymph # (Auto) 2.54 (0.50-3.50) K/uL [place] # (Auto) 1.02 H (0.00-1.00) K/uL Eos # (Auto) 0.33 (0.00-0.50) K/uL Baso # (Auto) 0.03 (0.00-0.20) K/uL PT 9.9 (9.5-12.0) SEC INR 0.9 APTT 23.4 (21.0-31.3) SEC Sodium (136-145) mmol/L Potassium (3.5-5.1) mmol/L Chloride (98-107) mmol/L Carbon Dioxide (21.0-32.0) mmol/L BUN (7-18) mg/dL Creatinine (0.51-1.17) mg/dL Est Cr Clr Drug Dosing Estimated GFR (MDRD) mL/min Glucose (74-106) mg/dL Lactic Acid (0.4-2.0) mmol/L Uric Acid (2.6-7.2) mg/dL Calcium (8.5-10.1) mg/dL Magnesium (1.8-2.4) mg/dL Total Bilirubin (0.2-1.0) mg/dL AST (15-37) U/L ALT (12-78) U/L Alkaline Phosphatase (46-116) IU/L Total Protein (6.4-8.2) g/dL Albumin (3.4-5.0) g/dL TSH, Ultra Sensitive (0.358-3.740) mIU/mL Urine Opiates Screen Cancelled Urine Methadone Screen Cancelled U Acetaminophen Screen Cancelled Ur Barbiturates Screen Cancelled Ur Tricyclics Screen Cancelled Ur Phencyclidine Scrn Cancelled Ur Amphetamine Screen Cancelled U Methamphetamines Scrn Cancelled U Benzodiazepines Scrn Cancelled U Cocaine Metab Screen Cancelled U Marijuana (THC) Screen Cancelled Ethyl Alcohol (0.000-0.080) g/dL 09/28/18 09/28/18 Range/Units 04:56 04:56 WBC (4.0-10.2) K/uL RBC (3.77-5.09) M/uL Hgb (11.7-15.5) g/dL Hct (34.0-46.0) % MCV (84.0-98.0) fL MCH (28.2-33.3) pg MCHC (31.7-36.0) g/dL RDW (11.2-14.1) % Plt Count (150-350) K/uL Neut % (Auto) (45.0-80.0) % Lymph % (Auto) (10.0-50.0) % [place] % (Auto) (2.0-14.0) % Eos % (Auto) (0.0-5.0) % Baso % (Auto) (0.0-2.0) % Neut # (Auto) (1.40-7.00) K/uL Lymph # (Auto) (0.50-3.50) K/uL [place] # (Auto) (0.00-1.00) K/uL Eos # (Auto) (0.00-0.50) K/uL Baso # (Auto) (0.00-0.20) K/uL PT (9.5-12.0) SEC INR APTT (21.0-31.3) SEC Sodium 142 (136-145) mmol/L Potassium 3.2 L (3.5-5.1) mmol/L Chloride 107 (98-107) mmol/L Carbon Dioxide 23.9 (21.0-32.0) mmol/L BUN 15 (7-18) mg/dL Creatinine 0.74 (0.51-1.17) mg/dL Est Cr Clr Drug Dosing TNP Estimated GFR (MDRD) > 60 mL/min Glucose 65 L (74-106) mg/dL Lactic Acid 2.0 (0.4-2.0) mmol/L Uric Acid 3.2 (2.6-7.2) mg/dL Calcium 7.4 L (8.5-10.1) mg/dL Magnesium 1.8 (1.8-2.4) mg/dL Total Bilirubin 0.1 L (0.2-1.0) mg/dL AST 25 (15-37) U/L ALT 40 (12-78) U/L Alkaline Phosphatase 63 (46-116) IU/L Total Protein 6.2 L (6.4-8.2) g/dL Albumin 3.1 L (3.4-5.0) g/dL TSH, Ultra Sensitive 1.576 (0.358-3.740) mIU/mL Urine Opiates Screen Urine Methadone Screen U Acetaminophen Screen Ur Barbiturates Screen Ur Tricyclics Screen Ur Phencyclidine Scrn Ur Amphetamine Screen U Methamphetamines Scrn U Benzodiazepines Scrn U Cocaine Metab Screen U Marijuana (THC) Screen Ethyl Alcohol 0.182 H (0.000-0.080) g/dL Urine specimen could not be collected. Meds: Medications Generic Name Dose Route Start Last Admin Trade Name Freq PRN Reason Stop Dose Admin Potassium Chloride/Dextrose/Sod Cl 1,000 mls @ 100 mls/hr 09/28/18 06:00 09/04 06:02 D5 Ns With 20 Meq Kcl IV 100 mls/hr ASDIRECTED GODWIN Administration Sodium Chloride 10 ml 09/28/18 04:44 09/28/18 05:43 Saline Flush FLUSH 10 ml ASDIRECTED PRN Administration Keep Vein Open Discontinued Medications Generic Name Dose Route Start Last Admin Trade Name Freq PRN Reason Stop Dose Admin Charcoal/Sorbitol Confirm 09/28/18 04:46 09/28/18 05:06 Insta-Iris Sorbitol Administered 09/28/18 04:47 240 ml Dose Administration 50 gm .ROUTE .STK-MED ONE Famotidine 40 mg 09/28/18 04:44 09/28/18 05:06 Pepcid IVPUSH 09/28/18 04:45 40 mg ONETIME ONE Administration Flumazenil 0.2 mg 09/28/18 04:48 09/28/18 05:06 Romazicon IVPUSH 09/28/18 04:49 0.2 mg ONETIME ONE Administration Flumazenil 0.2 mg 09/28/18 05:28 09/28/18 05:43 Romazicon IVPUSH 09/28/18 05:29 0.2 mg ONETIME ONE Administration Ondansetron HCl 4 mg 09/28/18 05:37 09/28/18 05:45 Zofran IVPUSH 09/28/18 05:38 4 mg ONETIME ONE Administration - Radiology Interpretation Free Text/Narrative:: monitoring tech shows normal sinus rhythm in the 70s to 80s with no ectopy or arrhythmia Chest x-ray, portable, shows no evidence of cardiomegaly, pneumothorax, or significant pulmonary infiltrates with some borderline right middle lobe atelectasis. Departure - Departure Time of Disposition: 07:05 Disposition: DC/Tfer to Acute Hospital 02 Condition: Fair Clinical Impression: Mixed anxiety depressive disorder, Peptic reflux disease, Tobacco abuse counseling, Hypokalemia, Hypoalbuminemia Overdose Qualifiers: Encounter type: initial encounter Injury intent: intentional self-harm Qualified Code(s): T50.902A - Poisoning by unspecified drugs, medicaments and biological substances, intentional self-harm, initial encounter - Discharge Information *PRESCRIPTION DRUG MONITORING PROGRAM REVIEWED*: Not Applicable *COPY OF PRESCRIPTION DRUG MONITORING REPORT IN PATIENT PAVAN: Not Applicable Forms: ED Department Discharge, Interfacility Transfer EMTALA - Problem List & Annotations (1) Overdose SNOMED Code(s): 22120808 Code(s): T50.901A - POISONING BY UNSP DRUG/MEDS/BIOL SUBST, ACCIDENTAL, INIT Status: Acute Priority: High Onset Date: 09/28/18 Annotation/Comment:: Gastric lavage with liters of room temperature tapwater conducted immediately him a however no pills could be obtained. Note status post gastric bypass. Charcoal/orbital placed through the gavage kit after the above lavage was completed. No complications with this procedure. Note no response to Narcan given by the paramedics with overall good response with IV Romazicon given in the emergency room after patient's arrival. Initial telephone consultation with [facility] at 05:55 hours with subsequent telephone consultation at 06:[address] Lopez, who does accept the patient for direct admission, with no further treatment recommendations given. Ambulance transfer with front end developer accompaniment. Psychiatry consultation advisable. Qualifiers: Encounter type: initial encounter Injury intent: intentional self-harm Qualified Code(s): T50.902A - Poisoning by unspecified drugs, medicaments and biological substances, intentional self-harm, initial encounter (2) Mixed anxiety depressive disorder SNOMED Code(s): 217953160 Code(s): F41.8 - OTHER SPECIFIED ANXIETY DISORDERS Status: Acute Priority : High Annotation/Comment:: Overdose attempt as above. Symptoms have been under moderately poor control recently by her 's history with symptoms actually worse after initiation of recent psychotherapy. Known history of distant recurrent suicidal ideation in the past but no inpatient treatment. No previous history of substance abuse including alcohol, etc., however patient does binge drink once per week and does use marijuana on a regular basis as above. Note current marital problems including argument earlier this evening. (3) Peptic reflux disease SNOMED Code(s): 027333587 Code(s): K21.9 - GASTRO-ESOPHAGEAL REFLUX DISEASE WITHOUT ESOPHAGITIS Status: Chronic Priority: Medium Annotation/Comment:: Stable by history. High-dose IV Pepcid given as GI prophylaxis. (4) Tobacco abuse counseling SNOMED Code(s): 090774174, 576696104, 685948213 Code(s): Z71.6 - TOBACCO ABUSE COUNSELING Status: Chronic Priority: Medium Annotation/Comment:: Patient and her have not been interested in stopping smoking in the past despite multiple previous counseling and tobacco cessation information. (5) Hypoalbuminemia SNOMED Code(s): 771098544 Code(s): E88.09 - [facility] DISORDERS OF PLASMA-PROTEIN METABOLISM, NEC Status: Acute Priority: Medium Onset Date: 09/28/18 Annotation/Comment:: Observe for now. Note history of gastric bypass. (6) Hypokalemia SNOMED Code(s): 40430498 Code(s): E87.6 - HYPOKALEMIA Status: Acute Priority: Medium Onset Date : 09/28/18 Annotation/Comment:: IV fluids with potassium supplementation as above. History of chronic intermittent diarrhea, including today in the emergency room. - Problem List Review Problem List Initiated/Reviewed/Updated: Yes - My Orders Last 24 Hours: My Active Orders 09/28/18 04:44 Sodium Chloride 0.9% [Saline Flush] 10 ml FLUSH ASDIRECTED PRN Resuscitation Status Stat 09/28/18 04:45 Cardiac Monitoring [RC] STAT EKG Documentation Completion [RC] ASDIRECTED Oxygen Therapy, ED [RC] PRN Peripheral IV Care [RC] . DIRECTED Pulse Oximetry [RC] CONTINUOUS Up With Assistance [RC] ASDIRECTED Vital Signs [RC] PFP Chest 1V Frontal [CR] Stat Obtain Past Medical Record [OM.PC] Stat Peripheral IV Insertion Adult [OM.PC] Stat 09/28/18 05:10 URINALYSIS W/MICROSCOPIC [UA W/MICROSCOPIC] [URIN] Routine 09/28/18 05:11 CULTURE URINE [RM] Routine 09/28/18 06:00 Dextrose 5%-0.9% NaCl with KCl [D5 NS with 20 mEq KCl] 1,000 ml IV ASDIRECTED 09/28/18 Breakfast Nothing per Oral Now Diet [DIET] - Assessment/Plan Last 24 Hours: My Active Orders 09/28/18 04:44 Sodium Chloride 0.9% [Saline Flush] 10 ml FLUSH ASDIRECTED PRN Resuscitation Status Stat 09/28/18 04:45 Cardiac Monitoring [RC] STAT EKG Documentation Completion [RC] ASDIRECTED Oxygen Therapy, ED [RC] PRN Peripheral IV Care [RC] . DIRECTED Pulse Oximetry [RC] CONTINUOUS Up With Assistance [RC] ASDIRECTED Vital Signs [RC] PFP Chest 1V Frontal [CR] Stat Obtain Past Medical Record [OM.PC] Stat Peripheral IV Insertion Adult [OM.PC] Stat 09/28/18 05:10 URINALYSIS W/MICROSCOPIC [UA W/MICROSCOPIC] [URIN] Routine 09/28/18 05:11 CULTURE URINE [RM] Routine 09/28/18 06:00 Dextrose 5%-0.9% NaCl with KCl [D5 NS with 20 mEq KCl] 1,000 ml IV ASDIRECTED 09/28/18 Breakfast Nothing per Oral Now Diet [DIET] Assessment:: As above Plan: As above. Extensive precautions were given to the patient and her , who are in agreement with the treatment plan. Ambulance transfer with front end developer accompaniment as above.
[2018-09-28] MEDS ORDERED: Activated Charcoal/Sorbitol Susp 50 GM/240 ML Bottle ONE (04:46)
[2018-09-28] MEDS ORDERED: Flumazenil 0.1 MG/ML 5 ML MDV IVPUSH ONE ×2 (04:48→05:28)
[2018-09-28] MEDS: Sodium Chloride 0.9% 10 ML Syringe FLUSH PRN ×2 (05:07→05:43)
[2018-09-28 05:27] LABS: CHLORIDE,CL 107 mmol/L (98-107); SODIUM,NA 142 mmol/L (136-145)
[2018-09-28] MEDS ORDERED: Ondansetron 4 MG/2 ML SDV IVPUSH ONE (05:37)
[2018-09-28] MEDS ORDERED: Dextrose 5%-0.9% NaCl with KCl 1,000 ML IV SCH (06:00)
[2018-09-28 07:39] VITALS: BP 108/77
== END 2018-09-28 07:05 ==
LOC: LL.ED 04:43
DX: T42.4X2A Poisoning by benzodiazepines, intentional self-harm, initial encounter (principal); F41.8 Other specified anxiety disorders; K21.9 Gastro-esophageal reflux disease without esophagitis; E87.6 Hypokalemia; E88.09 Other disorders of plasma-protein metabolism, not elsewhere classified; Z71.6 Tobacco abuse counseling
CPT/HCPCS: 36415; 71045; 80053; 83605; 83735; 84443; 84550; 85025; 85610; 85730; 93005; 96365; 96375; 96376; 99285; G0480; J2405; J3480; J3490

== ENCOUNTER 2019-05-19 12:39 | Emergency (ER) | payer BC ==
[2019-05-19] MEDS ORDERED: Famotidine 20 MG/2 ML SDV IVPUSH ONE (12:41)
[2019-05-19] MEDS ORDERED: diphenhydrAMINE 50 MG/ML SDV IVPUSH ONE (12:41)
--- NOTE | 2019-05-19 12:41 | EDM.PDOC ---
ED HPI GENERAL MEDICAL PROBLEM - General Chief Complaint: Allergic Reaction Stated Complaint: allergic reaction Time Seen by Provider: 05/19/19 12:40 Source of Information: Reports: Patient, Family (), Old Records ([facility] chart/EMR) History Limitations: Reports: No Limitations - History of Present Illness INITIAL COMMENTS - FREE TEXT/NARRATIVE: Patient was brought to the emergency room via private automobile by her for evaluation and treatment of another episode of recurrent idiopathic angioedema of unknown etiology. No recent change in allergen exposure. Note that the patient woke up with increasing facial swelling, angioedema, and mild dysphagia at about 10 AM this morning. The patient also denies any recent fever , wheezing, dyspnea, etc. although she has had some mild nasal drainage and yellowish productive cough during the last few days. The patient denies any chest pain/pressure, heart flutter, dizziness, orthostasis, orthopnea, diaphoresis, paresthesias, recent decreased exercise tolerance, or any other anginal-type symptoms. No recent history of abdominal pain, heartburn, nausea, diarrhea, melena, gross hematochezia, or any food intolerance, including fatty foods, etc.. She denies any pain or discomfort. The patient has an EpiPen at home, however this medication is . No other medical therapy prior to arrival. Onset: Today, Gradual Onset Date: 05/19/19 Onset Time: 10:00 Duration: Constant, Getting Worse Location: Reports: Face Quality: Reports: Same as Previous Episode Severity: Moderate Improves with: Reports: None Worsens with: Reports: None Context: Reports: Other (As above). Denies: Sick Contact, Trauma Associated Symptoms: Reports: Cough, cough w sputum, Rash (Facial urticaria). Denies: Confusion, Chest Pain, Diaphoresis, Fever/Chills, Headaches, Loss of Appetite, Malaise, Nausea/Vomiting, Shortness of Breath, Syncope, Weakness Treatments CAP MAKER: Reports: Other (see below) (None) - Related Data Allergies Allergy/AdvReac Type Severity Reaction Status Date / Time ciprofloxacin Allergy Burning Verified 05/19/19 13:48 desipramine Allergy UNKNOWN Verified 05/19/19 13:48 Home Meds: Home Meds EPINEPHrine [Epipen] 0.3 mg IM ASDIRECTED PRN 02/02/14 [History] FLUoxetine HCl [Fluoxetine HCl] 90 mg PO DAILY 02/02/14 [History] Omeprazole 40 mg PO DAILY 02/02/14 [History] Cyanocobalamin (Vitamin B12) [Vitamin B12] 1,000 mg PO DAILY 11/11/14 [History] Polyethylene Glycol 3350 [MiraLAX] 17 gm PO DAILY PRN 11/11/14 [History] Cholecalciferol (Vitamin D3) [Vitamin D3] 4,000 unit PO DAILY 05/20/17 [History] diphenhydrAMINE [Benadryl] 50 mg PO Q6H PRN 06/22/17 [History] Doxepin [SINEquan] 10 mg PO BEDTIME 02/16/18 [History] Cetirizine [ZyrTEC] 10 mg PO DAILY 05/19/19 [History] Past Medical History HEENT History: Reports: Cataract, Glaucoma, Impaired Vision. Denies: Allergic Rhinitis, Hard of Hearing, Macular Degeneration, Retinal Detachment Other HEENT History: Patient is legally blind with history of bilateral congenital cataracts with previous surgery as below. Cardiovascular History: Reports: None. Denies: Afib, Aneurysm, Arrhythmia, Blood Clots/VTE/DVT, CAD, Heart Failure, Heart Murmur, High Cholesterol, Hypertension, [place], Syncope Respiratory History: Reports: Intubation, Previous. Denies: Asthma, Bronchitis , Recurrent, COPD, Intubation, Difficult, PE, Pneumothorax, Sleep Apnea Gastrointestinal History: Reports: Cholelithiasis, Chronic Constipation, Chronic Diarrhea, GERD, Other (See Below). Denies: Celiac Disease, Gastritis, GI Bleed, Hepatitis, Inflammatory Bowel Disease, Irritable Bowel Syndrome, Jaundice, Pancreatitis, PUD Other Gastrointestinal History: Alternating diarrhea and constipation secondary to gastric bypass. Genitourinary History: Reports: UTI, Recurrent, Other (See Below). Denies: Acute Renal Failure, Chronic Renal Insuffiency, Renal Calculus, STD, Urinary Incontinence Other Genitourinary History: Recurrent UTIs in childhood but not currently CAREER GUIDANCE TECHNICIAN History: Reports: Dysfunctional Uterine Bleeding, Endometriosis, Fibroids , . Denies: Spontaneous : 3 Para: 3 Other CAREER GUIDANCE TECHNICIAN History: Menopause secondary to endometriosis and dysfunctional uterine bleeding with previous history of irregular menses. One delivery by with 2 C-sections all full-term deliveries and secondary to breech position the other secondary to failure to progress. Otherwise, Full term without complications during pregnancies or deliveries. Musculoskeletal History: Reports: Fracture, Other (See Below). Denies: Arthritis, Back Pain, Chronic, Gout, Neck Pain, Chronic, Osteoarthritis, RA, SLE Other Musculoskeletal History: Right fifth metacarpal fracture in the Psychiatric History: Reports: Anxiety, Depression, Psych Hospitalization(s), Suicide Attempt, Suicidal Ideation, Other (See Below). Denies: Abuse, Victim of , ADD, ADHD, Addiction, PTSD Other Psychiatric History: Suicide attempt with medication overdose on 09/28/18 with subsequent referral to [facility]. Endocrine/Metabolic History: Reports: Obesity/BMI 30+, Vitamin D Deficiency, Other (See Below). Denies: Diabetes, Gestational, Diabetes, Type I, Diabetes, Type II, Diabetes Mellitus, Type 3c, Hypothyroidism, IDDM Other Endocrine/Metabolic History: Previous obesity with gastric bypass surgery. Hematologic History: Reports: Anemia, B12 Deficiency, Iron Deficiency, Other ( See Below). Denies: Blood Transfusion(s) Other Hematologic History: History of chronic anemia secondary to her dysmenorrhea/hypermenorrhea. Immunologic History: Reports: None. Denies: AIDS, HIV, SLE Oncologic (Cancer) History: Reports: None. Denies: Basal Cell Carcinoma, Breast , Cervix, Colon, Hodgkin's Lymphoma, Leukemia, Lymphoma, Malignant Melanoma, Non -Hodgkin's Lymphoma, Ovarian, Squamous Cell Carcinoma, Uterine Dermatologic History: Reports: Angiodema, Other (See Below). 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 - Infectious Disease History Infectious Disease History: Reports: Other (See Below). Denies: C-Difficile, Meningitis, Mononucleosis, MRSA, VRE Other Infectious Disease History: Childhood illnesses unknown - Past Surgical History Head Surgeries/Procedures: Reports: None HEENT Surgical History: Reports: Adenoidectomy, Cataract Surgery, Eye Surgery, Oral Surgery, Tonsillectomy. Denies: Myringotomy w Tube(s), Naso-Sinus Surgery , Radiocarotid Ectomy Other HEENT Surgeries/Procedures: Total of seven eye surgies in childhood secondary to congenital cataracts, etc.. Tonsillectomy and adenoidectomy as a child. Ariton teeth extraction. Cardiovascular Surgical History: Reports: None. Denies: Varicose Respiratory Surgical History: Reports: None. Denies: Thoracentesis GI Surgical History: Reports: Bariatric Procedure, Cholecystectomy, Colonoscopy , EGD, Other (See Below). Denies: Appendectomy, Hernia, Abdominal, Hernia, Inguinal, Hernia Repair/Other, Polypectomy Other GI Surgeries/Procedures: EGD and colonoscopy on 11/12/14. Gastric bypass surgery in 1997. Subsequent laparoscopic cholecystectomy in about 1999. Female Surgical History: Reports: Section, Hysterectomy, Other (See Below). Denies: D&C, Salpingo-Oophorectomy, Tubal Ligation Other Female Surgeries/Procedures: Complete hysterectomy secondary to endometriosis at about age 39 Endocrine Surgical History: Reports: None. Denies: Thyroid Biopsy Neurological Surgical History: Reports: None. Denies: C-Spine, Discectomy, Laminectomy, Lumbar Spine, Sacral Spine, Thoracic Spine, Vertebroplasty Musculoskeletal Surgical History: Reports: Carpal Tunnel, ORIF, Other (See Below ). Denies: Arthroscopic Procedure, Ganglion Cyst, Joint Replacement, Shoulder Surgery Other Musculoskeletal Surgeries/Procedures:: ORIF of previous metacarpal fracture as above with subsequent hardware removal. Bilateral carpal tunnel release at about age 34. Oncologic Surgical History: Reports: None. Denies: Biopsy of Breast Dermatological Surgical History: Reports: None - Past Imaging History Past Imaging History: Reports: None Social & Family History - Family History Oncologic: Reports: Lung, Other (See Below) Other Oncologic Family History: Sister with fatal lung cancer at age 65 with history of tobacco use. Mother with primary hepatic cancer at age 86. - Tobacco Use Smoking Status *Q: Current Every Day Smoker Tobacco Use Within Last Twelve Months: Cigarettes Years of Tobacco use: 19 Packs/Tins Daily: 0.5 Used Tobacco, but Quit: No Smoking Cessation Information Provided To Patient: Yes Second Hand Smoke Exposure: Yes Source of Second Hand Smoke Exposure: smokes Second Hand Smoke Education Provided: Yes - Caffeine Use Caffeine Use: Reports: Soda - Alcohol Use Alcohol Use History: Yes Days Per Week of Alcohol Use: 1 Number of Drinks Per Day: 7 Total Drinks Per Week: 7 Total Drinks Per Week Comment: Usually beer. No previous DWIs, problems with alcohol abuse, etc. Alcohol Use in Last Twelve Months: Yes - Recreational Drug Use Recreational Drug Use: Yes Drug Use in Last 12 Months: Yes Recreational Drug Type: Reports: Marijuana/Hashish (Monthly marijuana use since age 39.). 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 ED EXAM GENERAL NO PERIP PULSE - Physical Exam Exam: See Below Exam Limited By: No Limitations General Appearance: Alert, WD/WN, No Apparent Distress Eye Exam: Bilateral Eye: Other (bilateral strabismus and anisocoria secondary to previous multiple eye surgeries and blindness) Ears: Normal External Exam, Normal Canal, Hearing Grossly Normal, Normal TMs Nose: Clear Rhinorrhea (I'll bilateral) Throat/Mouth: Normal Lips (Moderate facial and lip angioedema including mild uvular swelling and borderline dysphagia), Normal Teeth, Normal Gums, Normal Voice, No Airway Compromise, Dysphagia (Borderline), Other. No: Normal Oropharynx, Perioral Cyanosis Head: Atraumatic, Normocephalic. No: Facial Swelling, Facial Tenderness, Sinus Tenderness Neck: Normal Inspection, Supple, Non-Tender, Full Range of Motion. No: Lymphadenopathy (L), Lymphadenopathy (R), Thyromegaly Respiratory/Chest: No Respiratory Distress, Lungs Clear, Normal Breath Sounds, No Accessory Muscle Use, Chest Non-Tender. No: Pleural Rub, Retractions Cardiovascular: Normal Peripheral Pulses, Regular Rate, Rhythm, No Edema, No Gallop, No JVD, No Murmur, No Rub. No: Gallop/S3, Gallop/S4, Friction Rub GI/Abdominal: Normal Bowel Sounds, Soft, Non-Tender, No Organomegaly, No Distention, No Abnormal Bruit, No Mass. No: Guarding (Female) Exam: Deferred Rectal (Female) Exam: Deferred Back Exam: Normal Inspection, Full Range of Motion. No: CVA Tenderness (L), CVA Tenderness (R), Muscle Spasm Extremities: Normal Inspection, Normal Range of Motion, Non-Tender, No Pedal Edema, Normal Capillary Refill. No: Barry's Sign Neurological: Alert, Oriented, CN II-XII Intact, Normal Cognition, Normal Gait, No Motor/Sensory Deficits Psychiatric: Normal Affect, Normal Mood Skin Exam: Warm, Dry, Intact, Normal Color, Rash (Mild to moderate facial angioedema and urticaria). No: Diaphoretic, Wound/Incision Lymphatic: No Adenopathy Course - Vital Signs Last Recorded V/S: Last Vital Signs Temp 36.9 C 05/19/19 12:39 Pulse 74 05/19/19 13:17 Resp 20 05/19/19 13:17 BP 120/62 05/19/19 13:17 Pulse Ox 92 L 05/19/19 13:17 Vital Signs - 24 hr 05/19/19 05/19/19 05/19/19 12:39 12:47 13:02 Temperature [ 36.9 C Temporal] Pulse, 69 72 73 Peripheral [ Pulse Oximetry] Respiratory 19 16 16 Rate Blood Pressure 120/64 135/77 121/63 [Left Upper Arm ] O2 Sat by Pulse 95 95 95 Oximetry 05/19/19 13:17 Temperature [ Temporal] Pulse, 74 Peripheral [ Pulse Oximetry] Respiratory 20 Rate Blood Pressure 120/62 [Left Upper Arm ] O2 Sat by Pulse 92 L Oximetry - Orders/Labs/Meds Orders: Active Orders 24 hr Category Date Time Status Obtain Past Medical Record [OM.PC] Routine Oth 05/19/19 12:41 Active Labs: None Meds: Medications Discontinued Medications Generic Name Dose Route Start Last Admin Trade Name Allen PRN Reason Stop Dose Admin Diphenhydramine HCl 50 mg 05/19/19 12:41 05/19/19 12:47 Benadryl IVPUSH 05/19/19 12:42 50 mg ONETIME ONE Administration Epinephrine HCl 0.3 mg 05/19/19 12:42 05/19/19 12:46 Epipen IM 05/19/19 12:43 0.3 mg ONETIME ONE Administration Famotidine 40 mg 05/19/19 12:41 05/19/19 12:48 Pepcid IVPUSH 05/19/19 12:42 40 mg ONETIME ONE Administration - Radiology Interpretation Free Text/Narrative:: None Departure - Departure Time of Disposition: 14:05 Disposition: Home, Self-Care 01 Condition: Good Clinical Impression: Angioedema, Mixed anxiety depressive disorder, Tobacco abuse counseling, Peptic reflux disease, Illicit drug use - Discharge Information *PRESCRIPTION DRUG MONITORING PROGRAM REVIEWED*: Not Applicable *COPY OF PRESCRIPTION DRUG MONITORING REPORT IN PATIENT PAVAN: Not Applicable Instructions: Health Risks of Smoking, Angioedema, [id number], Smoking Tobacco Information, Adult Referrals: PCP,Unknown [Primary Care Provider] - Additional Instructions: 1. Follow up with your regular provider in 10-14 days as needed, if symptoms persist. Bring these discharge instructions with you to that visit.. 2. Fill your EpiPen prescription CATHERINE. 3. Stop all tobacco use CATHERINE as directed/per provided information and consider contacting [employer]uit [facility]ne, etc.. 4. Immediately after this visit verify that your cellular telephone's voicemail has been activated and is empty. Also verify that your home telephone 's answering machine is operating properly and has space to receive messages. Note that it is sometimes necessary for us to be able to contact you at a later date to discuss your medical care. 5. Please remember that we are ALWAYS here for you and want to answer any questions you may have. Feel free to call the hospital any time and we call you back CATHERINE. 6. Sedation precautions during the next 12 hours with additional sedation precautions with OTC Benadryl. Benadryl may be taken once again in 3 hours as needed - Problem List & Annotations (1) Angioedema SNOMED Code(s): 35390589 Code(s): T78.3XXA - ANGIONEUROTIC EDEMA, INITIAL ENCOUNTER Status: Acute Priority: High Current Visit: No Annotation/Comment:: Excellent results of the above therapy as above. The patient was encouraged to refill her EpiPen prescription CATHERINE. She was also advised to not use additional when necessary Claritin in addition to her other current medical therapy. Sedation precautions given. The patient does have a long history of idiopathic angioedema. (2) Illicit drug use SNOMED Code(s): 033785945 Code(s): F19.90 - OTHER PSYCHOACTIVE SUBSTANCE USE, UNSPECIFIED, UNCOMPLICATED Status: Chronic Priority: Medium Current Visit: No Annotation/Comment:: Marijuana discontinuation once again strongly encouraged. (3) Mixed anxiety depressive disorder SNOMED Code(s): 910256899 Code(s): F41.8 - OTHER SPECIFIED ANXIETY DISORDERS Status: Acute Priority : High Current Visit: No Annotation/Comment:: Stable by history. Note marijuana use as above. (4) Peptic reflux disease SNOMED Code(s): 537456217 Code(s): K21.9 - GASTRO-ESOPHAGEAL REFLUX DISEASE WITHOUT ESOPHAGITIS Status: Chronic Priority: Medium Current Visit: No Annotation/Comment:: Stable by history. High-dose IV Pepcid given as GI prophylaxis and as treatment for her angioedema. (5) Tobacco abuse counseling SNOMED Code(s): 540227821, 542769180, [id number] Code(s): Z71.6 - TOBACCO ABUSE COUNSELING Status: Chronic Priority: Medium Current Visit: No Annotation/Comment:: Patient and her were once again strongly encouraged to discontinue tobacco use CATHERINE, however they have previously not been interested in stopping smoking in the past despite multiple previous counseling and tobacco cessation information. - Problem List Review Problem List Initiated/Reviewed/Updated: Yes - My Orders Last 24 Hours: My Active Orders 05/19/19 12:41 Obtain Past Medical Record [OM.PC] Routine - Assessment/Plan Last 24 Hours: My Active Orders 05/19/19 12:41 Obtain Past Medical Record [OM.PC] Routine Assessment:: As above Plan: As above. Extensive precautions were given to the patient and her , who are in agreement with the treatment plan. See Patient Instructions for further treatment and plan.
[2019-05-19] MEDS ORDERED: EPINEPHrine 0.3 MG/0.3 ML Pen Autoinjector IM ONE (12:42)
[2019-05-19 17:07] VITALS: BP 111/68
== END 2019-05-19 14:03 | disposition home or self-care (01) ==
LOC: LL.ED 12:39
DX: T78.3XXA Angioneurotic edema, initial encounter (principal); K21.9 Gastro-esophageal reflux disease without esophagitis; F41.8 Other specified anxiety disorders; F12.90 Cannabis use, unspecified, uncomplicated; F17.210 Nicotine dependence, cigarettes, uncomplicated; Z71.6 Tobacco abuse counseling; Z88.1 Allergy status to other antibiotic agents; Z88.8 Allergy status to other drugs, medicaments and biological substances; Z79.899 Other long term (current) drug therapy
CPT/HCPCS: 96372; 96374; 96375; 99284-25; A9270-GY; J1200; J3490

== ENCOUNTER 2021-10-27 17:06 | Emergency (ER) | payer BC ==
[2021-10-27] MEDS ORDERED: Amoxicillin/Clavulanate K 875-125 MG Tab PO ONE (17:29)
[2021-10-27] MEDS ORDERED: Acetaminophen/HYDROcodone 325-10 MG Tab PO ONE (17:30)
[2021-10-27 17:49] VITALS: BP 151/83; PULSE 81
== END 2021-10-27 17:40 | disposition home or self-care (01) ==
LOC: LL.ED 17:06
DX: K08.89 Other specified disorders of teeth and supporting structures (principal); K21.9 Gastro-esophageal reflux disease without esophagitis; E66.9 Obesity, unspecified; Z68.30 Body mass index [BMI] 30.0-30.9, adult; Z88.1 Allergy status to other antibiotic agents; Z88.8 Allergy status to other drugs, medicaments and biological substances; Z79.899 Other long term (current) drug therapy; Z72.0 Tobacco use
CPT/HCPCS: 99282; A9270

== ENCOUNTER 2022-05-08 00:27 | Emergency (ER) | payer BC ==
[2022-05-08] MEDS ORDERED: Sodium Chloride 0.9% 10 ML Syringe FLUSH PRN (01:06)
[2022-05-08] MEDS ORDERED: Ondansetron 4 MG/2 ML SDV IVPUSH ONE (01:08)
[2022-05-08] MEDS ORDERED: Lactated Ringers 1,000 ML IV SCH (01:15)
[2022-05-08 02:00] LABS: BARBITURATE SCREEN,URINE NEGATIVE (NEGATIVE); BENZODIAZEPINES SCREEN,URINE NEGATIVE (NEGATIVE); EDDP,URINE SCREEN NEGATIVE (NEGATIVE); TCA SCREEN,URINE NEGATIVE (NEGATIVE); THC SCREEN,URINE 50 NG/ML POSITIVE (NEGATIVE)
[2022-05-08 02:02] LABS: ANION GAP 15.2 meq/L (7-15)
[2022-05-08 02:03] LABS: BUPRENORPHINE SCREEN,URINE NEGATIVE (NEGATIVE)
[2022-05-08] MEDS ORDERED: Potassium Chloride 20 MEQ Tab.ER PO ONE (02:04)
[2022-05-08 02:26] LABS: PTT,PARTIAL THROMBOPLSTIN TIME 21.2 SEC (23.6-29.8)
[2022-05-08 04:31] VITALS: BP 113/68; PULSE 75
== END 2022-05-08 03:29 | disposition home or self-care (01) ==
LOC: LL.ED 00:27
DX: R55 Syncope and collapse (principal); E87.6 Hypokalemia; F10.129 Alcohol abuse with intoxication, unspecified; K21.9 Gastro-esophageal reflux disease without esophagitis; F17.210 Nicotine dependence, cigarettes, uncomplicated; E66.9 Obesity, unspecified; Z68.27 Body mass index [BMI] 27.0-27.9, adult; Z88.1 Allergy status to other antibiotic agents; Z88.8 Allergy status to other drugs, medicaments and biological substances; Z79.899 Other long term (current) drug therapy; Y90.0 Blood alcohol level of less than 20 mg/100 ml
CPT/HCPCS: 36415; 80053; 80305-QW; 80307; 81001; 83735; 84484; 85025; 85610; 85730; 87086; 87088; 87186; 93005; 93010; 96360; 96361; 99284; 99284-25; A9270-GY; J7120

== ENCOUNTER → 2022-06-20 | Emergency (ER) | payer BC ==
[~2022-06-20] MED LIST changes: +ALPRAZolam 0.25 MG Tab ONE; -EPINEPHrine 0.3 MG/0.3 ML Pen Autoinjector IM ONE; -EPINEPHrine 1 MG/ML SDV SUBCUT ONE; -diphenhydrAMINE 50 MG/ML SDV IVPUSH ONE
[2022-07-13 16:14] LABS: ANION GAP 19.6 meq/L (7-15); CHLORIDE,CL 102 mmol/L (98-107); SODIUM,NA 139 mmol/L (136-145)
[2022-07-13 16:15] LABS: ESTIMATED GFR 71 mL/min (>=60)
== END ==
LOC: LL.ED 06:52
DX: F41.9 Anxiety disorder, unspecified (principal); F32.A Depression, unspecified; Z79.899 Other long term (current) drug therapy
CPT/HCPCS: 36415; 80048; 85025; 99283; 99284; A9270-GY